=== PATIENT | female | born 1950 | race Caucasian/White ===

== ENCOUNTER 2016-11-27 17:59 | Inpatient (IN) | payer MEDICARE ==
[~2016-11-27] VITALS: Ht 162.6 cm; Wt 58.1 kg
[~2016-11-27 17:59] MED LIST: ASPIRIN EC81 MG PO
[2016-11-27 23:45] LABS: HEMOGLOBIN 10.7 gm/dl (12.3-15.3); RED BLOOD COUNT 4.54 M/UL (4.00-5.10); WHITE BLOOD COUNT 24.4 K/UL (4.5-11.0)
[2016-11-28 07:48] LABS: HEMOGLOBIN 9.8 gm/dl (12.3-15.3); RED BLOOD COUNT 4.16 M/UL (4.00-5.10); WHITE BLOOD COUNT 19.5 K/UL (4.5-11.0)
[2016-11-28] MEDS ORDERED: BACTRIM DS TAB1 EACH PO (08:47)
[2016-11-28] MEDS ORDERED: ELAVIL 50 MG TA50 MG PO (08:48)
[2016-11-28] MEDS ORDERED: MECLIZINE HCL12.5 MG PO (08:48)
[2016-11-28] MEDS ORDERED: ISOSORBIDE MONO30 MG PO (08:49)
[2016-11-28] MEDS ORDERED: BUSPIRONE HCL15 MG PO (08:49)
[2016-11-28] MEDS ORDERED: SOTALOL80 MG PO (08:52)
[2016-11-28] MEDS ORDERED: TOPAMAX50 MG PO (08:52)
[2016-11-28] MEDS ORDERED: VITAMIN D 11000 UNIT PO (08:53)
[2016-11-28] MEDS ORDERED: ELIQUIS5 MG PO (08:54)
[2016-11-28] MEDS ORDERED: RANITIDINE HCL300 M1 PO (08:55)
[2016-11-28] MEDS ORDERED: ZOCOR80 MG PO (08:56)
[2016-11-29 06:16] LABS: RED BLOOD COUNT 3.33 M/UL (4.00-5.10); WHITE BLOOD COUNT 12.8 K/UL (4.5-11.0)
[2016-11-29 06:52] LABS: BUN/CREATININE RATIO 40 (0-10)
[2016-11-30] MEDS ORDERED: ZOFRAN4 MG PO (08:51)
[2016-11-30] MEDS ORDERED: IRON325 M1 PO (12:56)
[2016-11-30] MEDS ORDERED: LEVAQUIN250 MG PO (12:57)
[2016-11-30] MEDS ORDERED: PROTONIX40 MG PO (12:57)
== END 2016-11-30 14:21 | disposition home or self-care (01) | DRG 690 ==
LOC: ER1 17:59 → ZEROF 11-28 02:40 → M/S 11-28 02:40
PROVIDERS: Physician Assistant; ADMIT Internal Medicine
DX: N10 Acute pyelonephritis (principal); N17.9 Acute kidney failure, unspecified; D50.9 Iron deficiency anemia, unspecified; I48.0 Paroxysmal atrial fibrillation; J44.9 Chronic obstructive pulmonary disease, unspecified; I10 Essential (primary) hypertension; R10.13 Epigastric pain; E78.5 Hyperlipidemia, unspecified; I73.9 Peripheral vascular disease, unspecified; I65.29 Occlusion and stenosis of unspecified carotid artery; D47.3 Essential (hemorrhagic) thrombocythemia; K21.9 Gastro-esophageal reflux disease without esophagitis; G43.909 Migraine, unspecified, not intractable, without status migrainosus; B96.1 Klebsiella pneumoniae [K. pneumoniae] as the cause of diseases classified elsewhere; K74.60 Unspecified cirrhosis of liver; B96.89 Other specified bacterial agents as the cause of diseases classified elsewhere; F17.210 Nicotine dependence, cigarettes, uncomplicated; F41.9 Anxiety disorder, unspecified; Z95.0 Presence of cardiac pacemaker; Z85.118 Personal history of other malignant neoplasm of bronchus and lung; Z90.2 Acquired absence of lung [part of]; Z86.73 Personal history of transient ischemic attack (TIA), and cerebral infarction without residual deficits; Z93.6 Other artificial openings of urinary tract status; Z90.49 Acquired absence of other specified parts of digestive tract; Z98.890 Other specified postprocedural states
CPT/HCPCS: 36415; 80048; 80053; 80061; 81001; 83540; 83550; 83690; 85025; 85027; 87077; 87086; 87186; 96374; 96375; 96376; 99285; J0696; J2270; J2405; J7030; J7050; Q0162; Q9962

== ENCOUNTER 2016-12-20 17:48 | Emergency (ER) | payer MEDICARE ==
[~2016-12-20 17:48] MED LIST changes: +BACTRIM DS TAB1 EACH PO; +BUSPIRONE HCL15 MG PO; +ELAVIL 50 MG TA50 MG PO; +ELIQUIS5 MG PO; +IRON325 M1 PO; +ISOSORBIDE MONO30 MG PO; +LEVAQUIN250 MG PO; +MECLIZINE HCL12.5 MG PO; +PROTONIX40 MG PO; +RANITIDINE HCL300 M1 PO; +SOTALOL80 MG PO; +TOPAMAX50 MG PO; +VITAMIN D 11000 UNIT PO; +ZOCOR80 MG PO; +ZOFRAN4 MG PO
[2016-12-20 18:47] LABS: BUN/CREATININE RATIO 21 (0-10)
[2016-12-20 19:01] LABS: RED BLOOD COUNT 3.88 M/UL (4.00-5.10); WHITE BLOOD COUNT 9.6 K/UL (4.5-11.0)
== END 2016-12-21 01:20 | disposition home or self-care (01) ==
LOC: ER1 17:48
PROVIDERS: Emergency Medicine
DX: R11.2 Nausea with vomiting, unspecified (principal); D64.9 Anemia, unspecified; I10 Essential (primary) hypertension; J44.9 Chronic obstructive pulmonary disease, unspecified; F17.200 Nicotine dependence, unspecified, uncomplicated; Z95.0 Presence of cardiac pacemaker; Z79.899 Other long term (current) drug therapy; Z87.440 Personal history of urinary (tract) infections
CPT/HCPCS: 36415; 80053; 81001; 82150; 83690; 85025; 87077; 87086; 87186; 96361; 96372; 96374; 99284; J0696; J2405; J7040; J7050

== ENCOUNTER 2021-07-02 19:40 | Inpatient (IN) | payer MEDICARE ==
[~2021-07-02] VITALS: Ht 162.6 cm; Wt 53.5 kg
[~2021-07-02 19:40] MED LIST changes: +K-DUR TAB 20 M20 MEQ PO; +LOTRIMIN CREAM15 GM TP; +OMNICEF 300 MG300 MG PO; +ZOFRAN ODT 4 MG4 MG PO
[2021-07-02 20:41] LABS: HEMOGLOBIN 9.5 gm/dl (12.3-15.3); RED BLOOD COUNT 4.33 M/UL (4.00-5.10); WHITE BLOOD COUNT 11.6 K/UL (4.5-11.0)
[2021-07-02 21:04] LABS: BUN/CREATININE RATIO 14 (0-10)
[2021-07-03 05:58] LABS: HEMOGLOBIN 8.6 gm/dl (12.3-15.3); RED BLOOD COUNT 3.94 M/UL (4.00-5.10)
[2021-07-03 05:59] LABS: WHITE BLOOD COUNT 7.7 K/UL (4.5-11.0)
[2021-07-04 04:14] LABS: HEMOGLOBIN 8.1 gm/dl (12.3-15.3); RED BLOOD COUNT 3.79 M/UL (4.00-5.10); WHITE BLOOD COUNT 8.2 K/UL (4.5-11.0)
[2021-07-05 07:47] LABS: HEMOGLOBIN 7.6 gm/dl (12.3-15.3); RED BLOOD COUNT 3.6 M/UL (4.00-5.10); WHITE BLOOD COUNT 9.9 K/UL (4.5-11.0)
[2021-07-06 04:33] LABS: HEMOGLOBIN 8.2 gm/dl (12.3-15.3); RED BLOOD COUNT 3.82 M/UL (4.00-5.10); WHITE BLOOD COUNT 11.9 K/UL (4.5-11.0)
[2021-07-06 21:12] LABS: ACINETOBACTER BAUMANNII Not Detected (Negative); ENTEROCOCCUS Not Detected (Negative); KPC-CARBAPENEM-RESISTANCE GENE Not Detected (Negative); STAPHYLOCOCCUS AUREUS Not Detected (Negative); STREP AGALACTIAE (GROUP B) Not Detected (Negative); STREP PYOGENES (GROUP A) Not Detected (Negative); STREPTOCOCCUS Not Detected (Negative); mecA (METHICILLIN RESIST GENE Not Detected (Negative); vanA/B (VANCOMYCIN RESIST GENE Not Detected (Negative)
[2021-07-06 21:13] LABS: CANDIDA ALBICANS Not Detected (Negative); CANDIDA KRUSEI Not Detected (Negative); CANDIDA TROPICALIS Not Detected (Negative); ESCHERICHIA COLI Not Detected (Negative); HAEMOPHILUS INFLUENZAE Not Detected (Negative); KLEBSIELLA OXYTOCA Not Detected (Negative); KLEBSIELLA PNEUMONIAE Not Detected (Negative); PROTEUS Not Detected (Negative); PSEUDOMONAS AERUGINOSA Not Detected (Negative); SERRATIA MARCESANS Not Detected (Negative)
[2021-07-06 22:43] LABS: STAPHYLOCOCCUS DETECTED (Negative)
[2021-07-07 03:26] LABS: HEMOGLOBIN 8.3 gm/dl (12.3-15.3); RED BLOOD COUNT 3.85 M/UL (4.00-5.10); WHITE BLOOD COUNT 9.2 K/UL (4.5-11.0)
[2021-07-08 02:51] LABS: HEMOGLOBIN 8.2 gm/dl (12.3-15.3); RED BLOOD COUNT 3.8 M/UL (4.00-5.10); WHITE BLOOD COUNT 8.6 K/UL (4.5-11.0)
[2021-07-08] MEDS ORDERED: SYMBICORT 16010.2 GM INH (11:28)
[2021-07-08] MEDS ORDERED: SPIRIVA HANDIH18 MCG INH (11:28)
[2021-07-08] MEDS ORDERED: LEVOFLOXACIN500 MG PO (11:28)
[2021-07-08] MEDS ORDERED: COMBIVENT RESPIM4 GM INH (11:28)
[2021-07-08] MEDS ORDERED: PREDNISONE20 MG PO (11:28)
== END 2021-07-08 13:03 | disposition home health service (06) | DRG 189 ==
LOC: ER1 19:40 → CDU 07-03 00:56 → M/S 07-03 00:56
PROVIDERS: Family Medicine; Internal Medicine; Physician Assistant Medical; ADMIT Internal Medicine
DX: J96.01 Acute respiratory failure with hypoxia (principal); E43 Unspecified severe protein-calorie malnutrition; Z20.822 Contact with and (suspected) exposure to COVID-19; J44.1 Chronic obstructive pulmonary disease with (acute) exacerbation; N17.9 Acute kidney failure, unspecified; N30.00 Acute cystitis without hematuria; I12.9 Hypertensive chronic kidney disease with stage 1 through stage 4 chronic kidney disease, or unspecified chronic kidney disease; E78.5 Hyperlipidemia, unspecified; F17.210 Nicotine dependence, cigarettes, uncomplicated; I48.0 Paroxysmal atrial fibrillation; B96.20 Unspecified Escherichia coli [E. coli] as the cause of diseases classified elsewhere; N18.30 Chronic kidney disease, stage 3 unspecified; E87.6 Hypokalemia; F32.A Depression, unspecified; F41.9 Anxiety disorder, unspecified; D63.1 Anemia in chronic kidney disease; D50.9 Iron deficiency anemia, unspecified; Z79.01 Long term (current) use of anticoagulants; Z95.0 Presence of cardiac pacemaker; Z90.49 Acquired absence of other specified parts of digestive tract; Z93.2 Ileostomy status; Z85.118 Personal history of other malignant neoplasm of bronchus and lung; Z82.49 Family history of ischemic heart disease and other diseases of the circulatory system; Z68.20 Body mass index [BMI] 20.0-20.9, adult
CPT/HCPCS: 36415; 36600; 71045; 80048; 80053; 80307; 81001; 82272; 82550; 82553; 82607; 82746; 82803; 83540; 83550; 83735; 83874; 83880; 84100; 84439; 84443; 84484; 85025; 85027; 85045; 85610; 87040; 87077; 87086; 87150; 87186; 93005; 94640; 94760; 96374; 96375; 96376; 97162; 97166; 99285; C9113; G0378; J0696; J2405; J2920; J7030; U0002

== ENCOUNTER 2021-11-23 11:00 | Inpatient (IN) | payer MEDICARE, OTHER ==
[~2021-11-23] VITALS: Ht 162.6 cm; Wt 59.0 kg
[~2021-11-23 11:00] MED LIST changes: +AMITRIPTYLINE100 MG PO; +COMBIVENT RESPIM4 GM INH; -ELAVIL 50 MG TA50 MG PO; +LEVOFLOXACIN500 MG PO; -MECLIZINE HCL12.5 MG PO; +MECLIZINE HCL25 MG PO; +PREDNISONE20 MG PO; +SPIRIVA HANDIH18 MCG INH; +SYMBICORT 16010.2 GM INH
[2021-11-23 12:29] LABS: HEMOGLOBIN 9.5 gm/dl (12.3-15.3); RED BLOOD COUNT 4.17 M/UL (4.00-5.10); WHITE BLOOD COUNT 15.9 K/UL (4.5-11.0)
[2021-11-23 13:02] LABS: BUN/CREATININE RATIO 11 (0-10)
[2021-11-23] MEDS ORDERED: SPIRIVA HANDIH18 MCG INH (16:48)
[2021-11-23] MEDS ORDERED: COMBIVENT RESPIM4 GM INH (16:49)
[2021-11-23] MEDS ORDERED: DULOXETINE HCL60 MG PO (16:50)
[2021-11-23] MEDS ORDERED: CILOSTAZOL50 MG PO (16:50)
[2021-11-23] MEDS ORDERED: ASPIRIN EC81 MG PO (16:50)
[2021-11-23] MEDS ORDERED: HYDROCHLOROTHIA25 MG PO (16:51)
[2021-11-24 06:37] LABS: HEMOGLOBIN 7.5 gm/dl (12.3-15.3); RED BLOOD COUNT 3.28 M/UL (4.00-5.10); WHITE BLOOD COUNT 11.2 K/UL (4.5-11.0)
[2021-11-25 01:51] LABS: RED BLOOD COUNT 3.1 M/UL (4.00-5.10); WHITE BLOOD COUNT 8.5 K/UL (4.5-11.0)
--- NOTE | 2021-11-25 03:54 | NUR ---
NOTIFIED OF CRITICAL HGB OF 7.0 MD SAID TO MONITOR
--- NOTE | 2021-11-25 16:19 | NUR ---
PT BP CHANGED GREATER THAN 20 SBP AT THE END OF TRANSFUSION. LATEST BP WAS 158/75. PT IS IN NO DITRESS AND RESTING IN BED. MD HAS BEEN NOTIFED OF THIS CHANGE AND MADE NO ORDERS EXCEPT TO MONITOR. PT HAD NO OTHER AMNORMAL VITALS BEFORE AND DURING TRANSFUSION.
[2021-11-26 06:42] LABS: HEMOGLOBIN 9.6 gm/dl (12.3-15.3); RED BLOOD COUNT 4.01 M/UL (4.00-5.10); WHITE BLOOD COUNT 6.2 K/UL (4.5-11.0)
[2021-11-27 04:07] LABS: HEMOGLOBIN 9.3 gm/dl (12.3-15.3); RED BLOOD COUNT 3.81 M/UL (4.00-5.10); WHITE BLOOD COUNT 7.1 K/UL (4.5-11.0)
[2021-11-28 04:18] LABS: HEMOGLOBIN 7.6 gm/dl (12.3-15.3)
[2021-11-28 04:19] LABS: RED BLOOD COUNT 3.1 M/UL (4.00-5.10); WHITE BLOOD COUNT 9.3 K/UL (4.5-11.0)
[2021-11-29 04:18] LABS: HEMOGLOBIN 9.1 gm/dl (12.3-15.3); WHITE BLOOD COUNT 7.8 K/UL (4.5-11.0)
[2021-11-29 04:20] LABS: RED BLOOD COUNT 3.76 M/UL (4.00-5.10)
[2021-11-30] MEDS ORDERED: AMOX TR-K CLV1 EAC4 PO (09:40)
[2021-11-30] MEDS ORDERED: ELIQUIS 5 MG TAB5 MG PO (09:40)
[2021-12-01 06:12] LABS: RED BLOOD COUNT 3.7 M/UL (4.00-5.10); WHITE BLOOD COUNT 8.1 K/UL (4.5-11.0)
== END 2021-12-01 11:17 | disposition home health service (06) | DRG 699 ==
LOC: ER1 11:00 → CDU 15:05 → MED SURG 4 15:05
PROVIDERS: Emergency Medicine; Internal Medicine; Internal Medicine Infectious Disease; Physician Assistant Medical; ADMIT Internal Medicine
PROC: 3E03329 Introduction of Other Anti-infective into Peripheral Vein, Percutaneous Approach (ICD-10-PCS; principal; 2021-11-23)
PROC: B24BZZZ Ultrasonography of Heart with Aorta (ICD-10-PCS; 2021-11-24)
DX: N99.521 Infection of incontinent external stoma of urinary tract (principal); I13.0 Hypertensive heart and chronic kidney disease with heart failure and stage 1 through stage 4 chronic kidney disease, or unspecified chronic kidney disease; N17.9 Acute kidney failure, unspecified; D62 Acute posthemorrhagic anemia; N30.00 Acute cystitis without hematuria; E44.0 Moderate protein-calorie malnutrition; Z20.822 Contact with and (suspected) exposure to COVID-19; R51.9 Headache, unspecified; E87.6 Hypokalemia; J44.9 Chronic obstructive pulmonary disease, unspecified; I48.0 Paroxysmal atrial fibrillation; I73.9 Peripheral vascular disease, unspecified; D50.9 Iron deficiency anemia, unspecified; F41.9 Anxiety disorder, unspecified; I65.23 Occlusion and stenosis of bilateral carotid arteries; N18.30 Chronic kidney disease, stage 3 unspecified; F17.210 Nicotine dependence, cigarettes, uncomplicated; E87.5 Hyperkalemia; E78.5 Hyperlipidemia, unspecified; D64.9 Anemia, unspecified; F32.A Depression, unspecified; I12.9 Hypertensive chronic kidney disease with stage 1 through stage 4 chronic kidney disease, or unspecified chronic kidney disease; I25.10 Atherosclerotic heart disease of native coronary artery without angina pectoris; B95.2 Enterococcus as the cause of diseases classified elsewhere; K59.09 Other constipation; I50.9 Heart failure, unspecified; M54.9 Dorsalgia, unspecified; Z85.118 Personal history of other malignant neoplasm of bronchus and lung; Z79.01 Long term (current) use of anticoagulants; Z95.0 Presence of cardiac pacemaker; Z90.710 Acquired absence of both cervix and uterus; Z90.89 Acquired absence of other organs; Z93.4 Other artificial openings of gastrointestinal tract status; Z79.82 Long term (current) use of aspirin; Z87.442 Personal history of urinary calculi; Z90.49 Acquired absence of other specified parts of digestive tract; Z88.8 Allergy status to other drugs, medicaments and biological substances; Z82.49 Family history of ischemic heart disease and other diseases of the circulatory system; Z79.899 Other long term (current) drug therapy; Y83.8 Other surgical procedures as the cause of abnormal reaction of the patient, or of later complication, without mention of misadventure at the time of the procedure; Z99.3 Dependence on wheelchair; Z68.22 Body mass index [BMI] 22.0-22.9, adult; Z86.73 Personal history of transient ischemic attack (TIA), and cerebral infarction without residual deficits
CPT/HCPCS: ECHO; 36415; 36430; 70450; 71045; 80048; 80053; 81001; 82550; 82553; 82607; 82728; 82746; 83540; 83550; 83735; 83880; 84439; 84443; 84484; 85025; 85027; 86140; 86850; 86900; 86901; 86920; 87040; 87077; 87086; 87186; 92526; 92610; 93005; 93306; 94640; 94664; 94760; 96374; 96375; 96376; 97116-GP-CQ; 97162; 97530-GP-CQ; 99285; J0696; J1756; J1885; J2405; J3480; J7030; P9016; U0002